=== PATIENT | female | born 1990 | race Caucasian/White ===

== ENCOUNTER 2017-09-05 06:43 | Inpatient (IN) | payer OTHER ==
--- NOTE | 2017-09-04 08:05 | PREOPHP ---
Date of Admission: 09/05/2017 History Of Present Illness: Ms. Avitia is a 27-year-old, female, 1, para 0, [facility] She is admitted for elective induction of labor secondary to cholest asis of . She noticed the onset of pruritus over the weekend without evidence of a rash. S he has no new contact issues. She has been followed during this with only histories of ane cheryle and Rh negative blood type. Past Medical History: Please see records. Family History: Please see records. Review of Systems: She denies recent cough, cold, fever, or chills. Denies recent nausea vomiting. She denies any meenakshi st lumps. The infant has been very active. She denies urine symptoms or bowel issues. Physical Examination: General: Reveals pleasant, female in no apparent distress. Neck: Supple without adenopathy or thyromegaly. Lungs: Clear. Cardiac: Regular rate and rhythm without murmurs. Breasts: Not examined. Abdomen: Shows 36 cm fundal height, vertex presentation. heart tones well heard. Abdomen is nontender. There is no visible rash. Pelvic: Cervix noted to be 1 cm dilated, 80% effaced, vertex, -1 station. Extremities: No cyanosis, clubbing or edema. Impression: A 37+ week , cholestasis of , Rh negative blood type, anemia. Plan: The patient will be admitted for induction of labor secondary to cholestasis of and the increased risk associated with that. GARIMA/KENIA Voice ID: [id number]
[2017-09-05] MEDS ORDERED: PROMETHAZINE 25 MG/ML VIAL IV PRN (07:11)
[2017-09-05] MEDS ORDERED: Ringers Lactate 1,000 ML IV PRN (07:11)
[2017-09-05] MEDS ORDERED: BUTORPHANOL 1 MG/ML INJ IV ONE (07:15)
[2017-09-05] MEDS ORDERED: Ringers Lactate 1,000 ML IV ONE (07:29)
[2017-09-05 07:31] LABS: RPR Titer ND
[2017-09-05 07:39] LABS: Urine Appearance CLOUDY; Urine Bilirubin NEGATIVE (NEG); Urine Blood NEGATIVE (NEG); Urine Color YELLOW; Urine Glucose NEGATIVE (NEG); Urine Protein NEGATIVE (NEG); Urine Urobilinogen 0.2 mg/dL (0.2-1.0); Urine pH 6.5 (5.0-7.0)
[2017-09-05 07:43] LABS: Absolute Monocytes 0.5 K/uL (0.1-1.3); Basophils % 0.3 % (0-1.3); Lymphocytes % 20.9 % (15.3-44.8); MCV 88.7 fL (80-100); MPV 8.3 fL (7.6-11.3); Monocytes % 5.5 % (3.3-12.3); RBC Red Blood Cell Count 4.06 M/uL (3.86-4.86)
[2017-09-05] MEDS ORDERED: Ringers Lactate 1,000 ML IV SCH (08:00)
[2017-09-05] MEDS ORDERED: OXYTOCIN/LR 20 UNIT/1,000 ML BAG IV SCH ×2 (08:00→12:00)
[2017-09-05 08:27] LABS: Urine Microscopic Reflex ORDER UMIC
[2017-09-05 08:46] LABS: Urine RBC NONE SEEN /HPF (NONE SEEN)
[2017-09-05 08:47] LABS: Urine Bacteria <20 /HPF (<20)
[2017-09-05 08:48] LABS: Urine Culture Reflex Order REFLEXED
[2017-09-05] MEDS ORDERED: ROPIVACAINE HCL 100 ML IV PRN (08:51)
[2017-09-05] MEDS ORDERED: FENTANYL CITR 100 MCG/2 ML IV ONE (08:51)
[2017-09-05] MEDS ORDERED: ROPIVACAINE HCL 0.2% 20ML AMP SQ ONE (08:53)
[2017-09-05 09:07] VITALS: BMI 22.8
[2017-09-05] MEDS ORDERED: LIDOCAINE 1% 20 ML MDV ONE (10:51)
[2017-09-05] MEDS ORDERED: CARBOPROST TROME 250 MCG/ML IM ONE (10:51)
[2017-09-05] MEDS ORDERED: METHYLERGONOVINE 0.2MG/ML AMP IM ONE (10:51)
[2017-09-05] MEDS ORDERED: METHYLERGONOVINE 0.2 MG TAB PO PRN (11:54)
[2017-09-05] MEDS ORDERED: CARBOPROST TROME 250 MCG/ML IM PRN (11:54)
[2017-09-05] MEDS ORDERED: METHYLERGONOVINE 0.2MG/ML AMP IM PRN (11:54)
[2017-09-05] MEDS ORDERED: ONDANSETRON 4 MG (ODT) TAB PO PRN (11:54)
--- NOTE | 2017-09-05 11:58 | P.BOP ---
Preoperative diagnosis: 37+ week , cholestasis of Postoperative diagnosis: same, delivery viable male infant Primary procedure: SCVD Secondary procedure: repair bilateral periurethral lacerations Estimated blood loss: less than 300ml Anesthesia: epidural Complications: None Transferred to: Other ([id number]) Condition: Good
[2017-09-05] MEDS: Oxycodone HCl/Acetaminophen 1 TAB TAB PO PRN (19:50)
[2017-09-05 22:22] LABS: RPR (Rapid Plasma Reagin) NON-REACT (NON-REACT)
[2017-09-06] MEDS: IBUPROFEN 200 MG TAB PO PRN ×2 (00:50→08:31)
[2017-09-06] MEDS: Oxycodone HCl/Acetaminophen 1 TAB TAB PO PRN (04:00)
[2017-09-06 13:09] VITALS: BP 135/76; TEMP 98.5
--- NOTE | 2017-09-06 16:55 | DN ---
Surgeon: Nikunj Smith MD Brittni is a 27-year-old, female, 1, para 0, at 37+ weeks' gestation, admitted for induction of labor secondary to cholestasis of . She was noted to be 1+ cm on admission. Rupture of membranes performed by placement of scalp electrode and Pitocin augmentation of labo r was begun. She had an epidural catheter placed early. She had a first stage of labor of 4 hours a nd 5 minutes, second stage of labor of 10 minutes. She delivered by spontaneous controlled vaginal d elivery a 7 pounds 9 ounce male infant, 9 and 9. After delayed cord clamping, the cord was cla mped, cut, and the infant placed on mother's upper abdomen. Cord blood was obtained. The placenta w as spontaneously expelled and appeared to be intact. Intrauterine examination revealed no retained p lacental fragments. She suffered small first-degree bilateral periurethral lacerations, which were r epaired with simple sutures of 3-0 Vicryl suture. Estimated total blood loss was less than 300 cc. The patient tolerated all procedures well and benefitted from the epidural anesthesia. GARIMA/KENIA Voice ID: [id number] Report ID: [id number]
--- NOTE | 2017-09-06 17:04 | DS ---
Date of Discharge: 09/06/2017 Final Hospital Discharge Diagnoses: 1.A 37+ week . 2.Cholestasis of . Complications: None. Procedures: Artificial rupture of membranes. Pitocin induction of labor. Placement of epidural cath eter. Spontaneous controlled vaginal delivery of viable male infant. Repair of bilateral first-degre e periurethral lacerations. Hospital Course: The patient is a 27-year-old, female, 1, para 0, at 37+ weeks' station, admitted for induction of labor secondary to cholestasis of . She had an uneventfu l labor and delivery of a 7 pounds 9 ounce male infant, 9 and 9, with epidural anesthesia. She was dismissed on the first day, ambulatory on a select diet with routine post vaginal del michael with activity restrictions. Lab work noted on this hospital stay included an admission hemoglo bin and hematocrit of 13.0 and 36.0; Dismissal hematocrit of 31.1. She had urinalysis that was refl exed because of positive leukocyte esterase. Culture is pending. She had a nonreactive RPR and is R h negative blood type, will be given RhoGAM as necessary. She is to be seen back my office in 2 week s for followup, to continue taking her iron and vitamins and with the usual post vaginal del michael activity restrictions. GARIMA/KENIA Voice ID: [id number] Report ID: [id number]
[2017-09-07 18:27] LABS: HBsAG Nonreactive (Nonreactive)
== END 2017-09-06 14:45 | disposition home or self-care (01) | DRG 775 ==
LOC: 2ND-WC 06:43
PROVIDERS: ADMIT Specialist; ATTEND Specialist
PROC: 10E0XZZ Delivery of Products of Conception, External Approach (ICD-10-PCS; principal; 2017-09-06)
PROC: 10907ZC Drainage of Amniotic Fluid, Therapeutic from Products of Conception, Via Natural or Artificial Opening (ICD-10-PCS; 2017-09-06)
PROC: 3E033VJ Introduction of Other Hormone into Peripheral Vein, Percutaneous Approach (ICD-10-PCS; 2017-09-06)
PROC: 0UQMXZZ Repair Vulva, External Approach (ICD-10-PCS; 2017-09-06)
DX: O26.62 Liver and biliary tract disorders in childbirth (principal); K83.1 Obstruction of bile duct; O36.0930 Maternal care for other rhesus isoimmunization, third trimester, not applicable or unspecified; O99.02 Anemia complicating childbirth; O71.82 Other specified trauma to perineum and vulva; Z3A.37 37 weeks gestation of pregnancy; Z37.0 Single live birth
CPT/HCPCS: 36415; 81003; 81015; 85014; 85025; 86592; 86901; 87086; 87088; 87340; J2210; J2590; J2795; J3010